=== PATIENT | female | born 1955 | race Two or more races ===

== ENCOUNTER 2018-07-13 18:45 | Emergency (ER) | payer MEDICARE ==
[~2018-07-13] VITALS: Ht 154.9 cm; Wt 63.0 kg
[2018-07-13 18:49] VITALS: BP 125/81
[2018-07-13] MEDS ORDERED: HYDROcodone/APAP 5/325 TABLET ONE (19:20)
--- NOTE | 2018-07-13 19:22 | NUR ---
PT IN XRAY
[2018-07-13] MEDS ORDERED: HYDROcodone/APAP 5/325 TABLET PO PRN (19:30)
--- NOTE | 2018-07-13 20:58 | NUR ---
Patient/Caregiver given discharge instructions and they have confirmed that they understand the instructions. Patient ambulatory with steady gait.
== END 2018-07-13 21:00 | disposition home or self-care (01) ==
LOC: ED 19:55
DX: S63.512A Sprain of carpal joint of left wrist, initial encounter (principal); Z90.49 Acquired absence of other specified parts of digestive tract; Z90.89 Acquired absence of other organs; W01.0XXA Fall on same level from slipping, tripping and stumbling without subsequent striking against object, initial encounter; Y93.89 Activity, other specified; Y92.009 Unspecified place in unspecified non-institutional (private) residence as the place of occurrence of the external cause; Y99.8 Other external cause status
CPT/HCPCS: 29125; 99283